=== PATIENT | female | born 1995 | race Caucasian/White ===

== ENCOUNTER 2024-07-14 07:00 | Day surgery (SDC) | payer BC, OTHER ==
[~2024-07-14 07:00] MED LIST: Pre Op ABX Message 1 EACH MISC MISCELLANE ONE
[2024-07-14 07:39] VITALS: RESP 16
[2024-07-14] MEDS ORDERED: droPERidol 5 MG/2 ML VIAL IVP ONE (07:42)
[2024-07-14] MEDS ORDERED: LIDOCAINE 1% (10MG/ML) FOR IV START INTRADERMA PRN (07:42)
[2024-07-14] MEDS ORDERED: HYDROmorphone 0.5 MG/0.5 ML SYRINGE IVP PRN (07:42)
[2024-07-14] MEDS: IV FLUID CONTINUATION 1,000 ML IV ONE (07:51)
[2024-07-14] MEDS: DEXAMETHASONE SOD PHOSPHATE 4 MG/ML 1 ML VIAL IV ONE (07:57)
[2024-07-14] MEDS: ONDANSETRON 4 MG/2 ML VIAL IVP ONE (07:57)
[2024-07-14] MEDS: LACTATED RINGERS 1,000 ML IV SCH (07:57)
[2024-07-14] MEDS: MIDAZOLAM 2 MG/2 ML VIAL IV ONE (07:59)
[2024-07-14] MEDS: FAMOTIDINE 20 MG/2 ML VIAL IV STA (07:59)
[2024-07-14] MEDS: METOPROLOL TARTRATE 5 MG/5 ML VIAL IVP STA (08:22)
[2024-07-14] MEDS ORDERED: LIDOCAINE 1% INJ 10MG/ML (20 ML MDV) ONE (08:28)
[2024-07-14] MEDS ORDERED: MIDAZOLAM 2 MG/2 ML VIAL ONE (08:28)
[2024-07-14] MEDS ORDERED: fentaNYL (PF) 50 MCG/ML 2 ML AMP ONE (08:28)
[2024-07-14] MEDS ORDERED: PROPOFOL 10 MG/ML 20 ML VIAL IV ONE (08:28)
--- NOTE | 2024-07-14 08:34 | HP ---
HISTORY AND PHYSICAL DATE OF SURGERY: 07/14/2024. HISTORY OF PRESENT ILLNESS: The patient is a 29-year-old, 0, para 0, who presented to the office initially for control counseling. She has been using Depo-Provera as well as condoms and was dissatisfied with this secondary to the inconvenience and potential risk factors with ongoing use of Depo-Provera. She was amenorrheic and would like to try to remain that way if possible. As a result and after counseling, she ultimately chose to have a Mirena placed. She had Cytotec in the vagina the night before the attempted procedure. Attempts to place the Mirena failed secondary to cervical stenosis and nulliparity. After discussion, the patient still wishes to have a Mirena placed and is willing to have it placed under anesthesia. PAST MEDICAL HISTORY: Significant for anxiety, bipolar disorder, depression, and PTSD. PAST SURGICAL HISTORY: None. OBSTETRICAL HISTORY: 0, para 0. Current method of contraception has been Depo-Provera with condoms. GYNECOLOGIC HISTORY: Unremarkable with no history of any infections to include STDs. Gonorrhea and Chlamydia testing were negative prior to the attempted placement of the IUD. FAMILY HISTORY: Noncontributory. SOCIAL HISTORY: The patient is and is a nonsmoker. She reports no other social concerns. CURRENT MEDICATIONS: Include, 1. Lamictal 200 mg daily. 2. Depo-Provera 150 mg every 3 months. 3. Seroquel 25 mg daily. ALLERGIES: No known drug allergies. REVIEW OF SYSTEMS: Confined to history of present illness. PHYSICAL EXAMINATION: VITAL SIGNS: Stable. The patient is afebrile. GENERAL: This is a well-developed, well-nourished white female, in no acute distress. HEART: Has a regular rhythm and rate without murmur. LUNGS: Clear to auscultation bilaterally in all hewitt. ABDOMEN: Nondistended, has normoactive bowel sounds, soft, nontender, without any palpable masses, hepatosplenomegaly, or hernias. EXTREMITIES: Without any cyanosis, clubbing, or edema and are nontender to palpation bilaterally. PELVIC: Demonstrates normal external genitalia and BUS with normal vaginal mucosa and cervix. There is no cervical motion tenderness. The uterus is approximately 4 weeks in size, slightly anteverted, mobile, nontender, normal in shape. The adnexa are normal and nontender without mass bilaterally. ASSESSMENT AND PLAN: Contraception: The patient desires to have Mirena placed and this could not be performed in the office secondary to cervical stenosis. As a result, she has been scheduled to have Mirena IUD placed under anesthesia per protocol. The risks and complications have been thoroughly discussed and she has understood and agreed to proceed. MMODL / IJN: [id number] /
[2024-07-14] MEDS ORDERED: ACETAMINOPHEN TAB 325 MG TAB PO PRN (09:01)
[2024-07-14] MEDS ORDERED: diphenhydrAMINE 25 MG CAP PO PRN (09:01)
[2024-07-14] MEDS ORDERED: IBUPROFEN 600 MG TAB PO PRN (09:01)
[2024-07-14] MEDS ORDERED: METOCLOPRAMIDE 5 MG/ML 2 ML VIAL IVP PRN (09:01)
[2024-07-14] MEDS ORDERED: SIMETHICONE 80 MG CHEWABLE PO PRN (09:01)
[2024-07-14] MEDS ORDERED: ONDANSETRON 4 MG/2 ML VIAL IVP PRN (09:01)
--- NOTE | 2024-07-14 09:08 | P.OP ---
Date of Procedure: 07/14/24 Preoperative Diagnosis: #1. Contraception management #2. Cervical stenosis Postoperative Diagnosis: Same Procedure(s) Performed: #1. Failed IUD placement Anesthesia: other (General By face mask) Surgeon: Tyron Sosa Estimated Blood Loss (ml): 0 IV fluids (ml): 600 Urine output (ml): 20 Pathology: none sent Condition: stable Disposition: PACU Operative Findings: Preoperative pelvic examination demonstrated a 4-week midplane mobile normal shaped uterus with normal adnexa bilaterally. Intraoperatively, the internal os remained significantly stenotic. Attempts to probe it with the smallest dilator utilizing the curvature in multiple different directions failed to demonstrate the os until it suddenly became apparent. After dilation with 2 dilators, the uterine sound was passed and there was no resistance at the top indicating uterine perforation. At this point, the procedure was abandoned. Description of Procedure: The patient was prepped and draped in usual fashion after general anesthesia was administered by the anesthesiologist. A weighted speculum was placed and the bladder drained of approximately 20 cc of clear arya urine. The anterior lip of the cervix was grasped with a single-tooth tenaculum and attempts to pass the sound failed secondary to the previously mentioned cervical stenosis. We had been unable to place an IUD in the office secondary to this diagnosis. The smallest dilator was then utilized to gently probe the cervix using the curvature in all directions in order to ascertain the direction of the cervical canal. With only gentle pressure, a site was found anteriorly where the dilator passed without difficulty. 1 further dilator was utilized with no resistance to open the cervical canal. The uterine sound was then placed and there was no resistance at the top and it was able to be placed easily to 10 cm or further indicating uterine perforation. The patient was observed under anesthesia for period of time and there was no ongoing bleeding from the cervix. All instrumentation was removed and the procedure was abandoned. Estimated blood loss for the case was 0 mL. The only complication was the aforementioned uterine perforation. All sponge, instrument, and needle counts were correct. The patient tolerated the procedure well and proceeded to the recovery room in stable condition.
[2024-07-14 09:10] VITALS: TEMP 97.9
[2024-07-14] MEDS: LACTATED RINGERS 1,000 ML IV ONE (09:21)
[2024-07-14 09:40] LABS: Basophils % (A) 1 %; Eosinophils % (A) 1 %; HCT 39.3 % (34.0-46.0); HGB 13.1 gm/dL (11.4-16.0); Lymphocytes # (A) 0.9 k/uL (1.0-4.8); Lymphocytes % (A) 13 %; MCH 29.6 pg (25.0-35.0); MCHC 33.4 g/dL (31.0-37.0); MCV 88.8 fL (80.0-100.0); Monocytes # (A) 0.2 k/uL (0-1.0); Monocytes % (A) 3 %; Neutrophils # (A) 5.5 k/uL (1.3-7.7); Neutrophils % (A) 82 %; Platelet Count 242 k/uL (150-450); RBC 4.43 m/uL (3.80-5.40); RDW 12.2 % (11.5-15.5); WBC 6.7 k/uL (3.8-10.6)
[2024-07-14 09:57] LABS: African American GFR (CKD) >90 (>60 ml/min/1.73 sqM); Anion Gap 11 mmol/L; Blood Urea Nitrogen 8 mg/dL (7-17); Calcium 9.3 mg/dL (8.4-10.2); Carbon Dioxide 21 mmol/L (22-30); Chloride 109 mmol/L (98-107); Glucose 93 mg/dL (74-99); Non-African American GFR(CKD) >90 (>60 ml/min/1.73 sqM); Potassium 4.4 mmol/L (3.5-5.1); Sodium 141 mmol/L (137-145)
[2024-07-14] MEDS: KETOROLAC 15 MG/ML 1 ML VIAL IVP PRN (10:00)
[2024-07-14 10:48] VITALS: BP 117/78; PULSE 120
== END 2024-07-14 11:01 | disposition home or self-care (01) ==
LOC: OR 07:00
PROVIDERS: ATTEND Obstetrics & Gynecology
DX: Z53.8 Procedure and treatment not carried out for other reasons (principal); Z30.430 Encounter for insertion of intrauterine contraceptive device; N88.2 Stricture and stenosis of cervix uteri; F90.9 Attention-deficit hyperactivity disorder, unspecified type; F43.10 Post-traumatic stress disorder, unspecified; F31.9 Bipolar disorder, unspecified; F41.9 Anxiety disorder, unspecified; Z79.899 Other long term (current) drug therapy
CPT/HCPCS: 81025; 80048; 85025; 58300; J2250; J1100; J2405; J2003; J3010; J3490; J1885; J2704